=== PATIENT | male | born 2000 | race African-American/Black ===

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

== ENCOUNTER → 2021-04-06 | Outpatient (CLI) | payer OTHER, MEDICAID ==
[2021-04-06 16:50] LABS: BASO # 0.03 K/mm3 (0.02-0.10); EOS # 0.14 K/mm3 (0.04-0.40); HEMATOCRIT 44.6 % (36.0-47.0); HEMOGLOBIN 14.5 g/dL (12.5-16.1); LYMPH# 1.73 K/mm3 (1.50-4.00); MEAN CELL VOLUME 88 fl (78-95); MEAN CORPUSCULAR HEMOGLOBIN 29 pg (26-32); MEAN CORPUSCULAR HGB CONC 33 g/dL (33-37); MEAN PLATELET VOLUME 9.9 fl (7.4-10.4); MONO # 1.49 K/mm3 (0.20-0.80); NEU # 10.62 K/mm3 (1.40-6.50); PLATELET COUNT 212 K/mm3 (130-400); RED BLOOD COUNT 5.07 M/mm3 (4.20-5.60); RED CELL DISTRIBUTION WIDTH 12.7 % (11.5-14.5); WHITE BLOOD COUNT 14.1 K/mm3 (4.8-10.8)
[2021-04-06 17:00] LABS: ALBUMIN 3.8 g/dL (3.5-5.0); POTASSIUM 3.7 mmol/L (3.5-5.1)
[2021-04-06 17:02] LABS: CALCIUM 8.9 mg/dL (8.3-10.5)
[2021-04-06 17:03] LABS: TOTAL PROTEIN 7.7 g/dL (6.4-8.3)
[2021-04-06 17:05] LABS: TOTAL BILIRUBIN 0.4 mg/dL (0.2-1.2)
== END ==
LOC: LAB 16:40
PROVIDERS: Nurse Practitioner
DX: J03.90 Acute tonsillitis, unspecified (principal)